=== PATIENT | male | born 1965 | race Caucasian/White ===

== ENCOUNTER 2021-05-15 23:27 | Emergency (ER) | payer OTHER, SELFPAY ==
--- NOTE | ~2021-05-15 | CT_ITS ---
EXAMINATION: CT HEAD WITHOUT CONTRAST CT CERVICAL SPINE WITHOUT CONTRAST CLINICAL INFORMATION: Status post fall COMPARISON: None. TECHNIQUE: Multidetector CT imaging of the head and cervical spine was performed without the use of intravenous contrast. Multiplanar reformats are reviewed. This CT examination was performed using dose optimization techniques as appropriate, variously including the following: *Automated exposure control *Adjustment of mA and/or kV according to patient size (this includes techniques or standardized protocols for targeted exams where dose is matched to indication/reason for exam; i.e. extremities or head) *Use of iterative reconstruction technique DLP: 1143 mGy-cm. FINDINGS: There is no evidence of acute intracranial hemorrhage or territorial infarction. No abnormal mass effect or midline shift is seen. Garcia to white matter differentiation is well preserved. No extra-axial fluid collections are identified. The ventricles are normal in size. There is no abnormal attenuation within the brain parenchyma. The osseous structures and soft tissues are normal. Small mucous retention present within the right sphenoid chamber. Remainder of the paranasal sinuses are clear. Mastoid air cells are pneumatized. Atlantooccipital alignment is maintained. The vertebral bodies and posterior elements align normally. No acute fracture or subluxation. Vertebral body heights are maintained. Small endplate osteophytes present at C4-C5 and C5-C6 and C6-C7 with accompanying of vertebral arthrosis leading to moderate bilateral foraminal narrowing at these levels. The cervicomedullary junction and spinal cord are grossly unremarkable. The paraspinal soft tissues are unremarkable. The imaged lung apices are clear CT/CT cervical spine wo con IMPRESSION: No acute intracranial pathology. No cervical spine fracture or malalignment.
--- NOTE | ~2021-05-15 | XR_ITS ---
EXAMINATION: XR CHEST CLINICAL INFORMATION: Question of aspiration COMPARISON: None TECHNIQUE: Frontal view of the chest was obtained. FINDINGS: No significant abnormality is noted involving the heart, lungs, mediastinum, bony thorax or soft tissues. XR/XR chest 1V IMPRESSION: Unremarkable examination.
--- NOTE | 2021-05-15 23:34 | ECG_ITS ---
Test Reason : OD Blood Pressure : / mmHG Vent. Rate : 089 BPM Atrial Rate : 089 BPM P-R Int : 134 ms QRS Dur : 096 ms QT Int : 386 ms P-R-T Axes : 075 047 019 degrees QTc Int : 469 ms Normal sinus rhythm Possible Left atrial enlargement Borderline ECG No previous ECGs available Referred By: Drew Mar Electronically Signed By:LINDSEY TOWNSEND
--- NOTE | 2021-05-15 23:39 | PC.NURSE ---
family left phone numbers for update Truman Franks (daughter) [phone], and son Sylvester Franks [phone]
[2021-05-15 23:41] VITALS: BP 117/80; BP 157/91; PULSE 87; PULSE 90; RESP 19; TEMP 36.7; O2SAT 70; O2SAT 97; BMI 26.6
[2021-05-15] MEDS: 0.9 % Sodium Chloride 1,000 ML 999 ML IVCONT (23:47)
[2021-05-16] VITALS (7 sets, daily range): BP systolic 131–151; BP diastolic 72–95; PULSE 79–86; RESP 12–22; O2SAT 95–100
[2021-05-16 00:04] LABS: MANUAL DIFF FLAG NO
[2021-05-16 00:05] LABS: Basophils Absolute Auto 0.1 X10*3/uL (0.0-0.2); Basophils Percent Auto 0.3 % (0-2); Eosinophils Absolute Auto 0.1 X10*3/uL (0.0-0.4); Eosinophils Percent Auto 0.5 % (0-4); Hematocrit 47.4 % (42-52); Hemoglobin 16.1 g/dl (14.0-18.0); Imm Gran Pct Auto 1.4 % (0.0-0.4); Lymphocytes Absolute Auto 1.8 X10*3/uL (1.2-4.9); Lymphocytes Percent Auto 8.2 % (20-40); Mean Corpuscular Hemoglobin 32.1 pg (27.0-33.0); Mean Corpuscular Volume 94.6 fL (80-98); Mean Platelet Volume 10.8 fL (9.4-12.4); Monocytes Absolute Auto 1.3 X10*3/uL (0.1-1.2); Monocytes Percent Auto 6.1 % (2-11); Neutrophils Absolute Auto 18.4 X10*3/uL (2.0-8.3); Neutrophils Percent Auto 83.5 % (45-73); Platelet Count 227 X10*3/uL (160-400); Red Blood Count 5.01 X10*6/uL (4.60-5.80); Red Cell Distribution Width 13.7 % (11.0-16.0)
[2021-05-16 00:10] LABS: VBG Base Excess -2.6 mmol/L; VBG HCO3 24 mmol/L (22-26); VBG pCO2 51 mmHg; VBG pH 7.29 (7.32-7.43); VBG pO2 70 mmHg
[2021-05-16 00:11] LABS: Venous Blood Gas Refer to POC result
[2021-05-16 00:22] LABS: COVID-19 Test Negative (Negative); IDNOW Serial# 9DD0AD1C
[2021-05-16 00:30] LABS: Prothrombin Time 12.2 SEC (10.8-13.0)
[2021-05-16 00:46] LABS: Alanine Aminotransferase 33 U/L (0-40); Albumin Level 4.3 g/dL (3.5-5.0); Alkaline Phosphatase 81 U/L (39-117); Anion Gap 18 (12-20); Aspartate Amino Transferase 33 U/L (5-37); Bilirubin Direct 0.3 mg/dL (0.0-0.5); Bilirubin Total 0.7 mg/dL (0.0-1.0); Blood Urea Nitrogen 20 mg/dL (9-16); Calcium 9.6 mg/dL (8.4-10.2); Carbon Dioxide 23 mmol/L (22-29); Chloride 102 mmol/L (96-108); Creatinine Clr Calc Pharmacy 49.8; Estimated Glomerular Filt Rate 54; Glucose Random 188 mg/dL (60-115); Magnesium 2.1 mg/dL (1.6-2.6); Potassium 3.7 mmol/L (3.3-5.1); Sodium 139 mmol/L (135-145); Total Protein 7.3 g/dL (6.5-8.0)
--- NOTE | 2021-05-16 00:46 | ED.OVERDOSE ---
HPI - Overdose General Chief Complaint: Overdose Stated Complaint: od Time Seen by Provider: 05/15/21 23:32 Source: EMS Mode of arrival: EMS History of Present Illness HPI Narrative: Patient with history of remote substance abuse used 2 bags of heroin today family heard thud and found him unresponsive in the shower started CPR by the family patient was found apneic by PD was given 4 mg of intranasal Narcan EMS also gave another 4 mg of Narcan patient was saturating 70% upon EMS arrival no vomiting around upon arrival to ED patient is saturating 80% on 4 L nasal cannula improved to 97% on non-rebreather patient alert oriented x3 denies any pain Related Data Allergies Allergy/AdvReac Type Severity Reaction Status Date / Time No Known Allergies Allergy Verified 05/15/21 23:32 Review of Systems Review of Systems: Constitutional : No Weight loss, No Fever, No Chills ENT/Mouth : No sore throat, No Rhinorrhea Eyes: No Eye Pain, No Swelling Cardiovascular : No Chest Pain, no palpitations Respiratory : No Cough, No Sputum, no shortness of breath Gastrointestinal : no Nausea, No Vomiting, No Diarrhea, No abdominal Pain, no black stools Genitourinary : No Dysuria, No Urinary Frequency Musculoskeletal : No joint pain, No Myalgias, No Joint Swelling Skin : No Skin Lesions, No rash Neuro : No Weakness, No Numbness, No Dizziness, No Headache Psych : No Anxiety/Panic, No Depression Heme/Lymph: No Bruising, No Lymphadenopathy Endocrine : No Polyuria, No Polydipsia All other systems reviewed and are negative [facility] Past Medical History Medical History (Updated 05/16/21 @ 01:42 by Drew Mar MD) Opiate abuse, episodic Physical Exam Vital Signs: Vital Signs: Last Vital Signs Temp 98.0 F 05/15/21 23:41 Pulse 84 05/16/21 00:58 Resp 16 05/16/21 00:58 BP 151/95 H 05/16/21 00:58 Pulse Ox 100 05/16/21 01:43 Oxygen Flow Rate 15 05/15/21 23:41 Body Mass Index 26.6 Appearance: Alert. Oriented X3. No acute distress. Eyes: PERRLA, No Nystagmus ENT: Pharynx normal. Oral Mucosa moist, cervical collar in place Neck: Normal inspection. Neck supple. CVS: Normal heart rate and rhythm. Pulses normal. Respiratory: No respiratory distress. Equal air entry bilateral, no wheezing/rales/rhonchi Abdomen: Soft and nontender. Bowel sounds are present, no mass palpable, no CVA tenderness Skin: Skin warm and dry. Normal skin color. Normal skin turgor. Extremities: No lower extremity edema. No calf tenderness Neuro: Oriented X 3. No motor deficit. No sensory deficit.No cerebellar signs , cranial nerves II-XII intact Course Reevaluation(s) Reevaluation #1: Patient awake saturating 98% vomiting after taking p.o. fluids will watch him for little longer give IV fluids IV Zofran Pepcid Time: 01:52 MDM - Overdose MDM Narrative Medical decision making narrative: Patient is heroin overdose responded to 8 mg of Narcan A and O x3 initially patient hypoxic with elevated WBC count in the blood chest x-ray negative for any acute infiltrate patient vomited 1 time in the ER elevated leukocytes count likely from a hypoxic injury. At this time patient alert oriented times in saturating 98 - 99% at room air taking p.o. fluids will discharge patient home Lab Data Attestation: I reviewed the patient's lab results. Result diagrams: 05/15/21 23:54 05/15/21 23:54 Labs: Lab Results 05/15/21 05/15/21 05/15/21 Range/Units 23:54 23:54 23:54 WBC 22.0 H (4.8-10.8) X10*3/uL RBC 5.01 (4.60-5.80) X10*6/uL Hgb 16.1 (14.0-18.0) g/dl Hct 47.4 (42-52) % MCV 94.6 (80-98) fL MCH 32.1 (27.0-33.0) pg MCHC 34.0 (31.0-36.0) g/dl RDW 13.7 (11.0-16.0) % Plt Count 227 (160-400) X10*3/uL MPV 10.8 (9.4-12.4) fL Immature Gran % (Auto) 1.4 H (0.0-0.4) % Neut % (Auto) 83.5 H (45-73) % Lymph % (Auto) 8.2 L (20-40) % [place] % (Auto) 6.1 (2-11) % Eos % (Auto) 0.5 (0-4) % Baso % (Auto) 0.3 (0-2) % Lymph # (Auto) 1.8 (1.2-4.9) X10*3/uL [place] # (Auto) 1.3 H (0.1-1.2) X10*3/uL Eos # (Auto) 0.1 (0.0-0.4) X10*3/uL Baso # (Auto) 0.1 (0.0-0.2) X10*3/uL Abs Immat Gran (auto) 0.30 H (0.00-0.03) X10*3/uL Absolute Neuts (auto) 18.4 H (2.0-8.3) X10*3/uL Absolute Nucleated RBC 0.000 (0.0-0.012) X10*3/uL Nucleated RBC % (auto) 0.0 (0.0-0.2) /100WBC PT 12.2 (10.8-13.0) SEC INR 1.0 (0.9-1.1) VBG pH (7.32-7.43) VBG pCO2 mmHg VBG pO2 mmHg VBG HCO3 (22-26) mmol/L VBG O2 Saturation % VBG Base Excess mmol/L Sodium Cancelled Potassium Cancelled Chloride Cancelled Carbon Dioxide Cancelled Anion Gap Cancelled BUN Cancelled Creatinine Cancelled Estim Creat Clear Calc Cancelled Estimated GFR Cancelled Random Glucose Cancelled Calcium Cancelled Magnesium (1.6-2.6) mg/dL Total Bilirubin Cancelled Direct Bilirubin Cancelled AST Cancelled ALT Cancelled Alkaline Phosphatase Cancelled Troponin I High Sens (<3.5-35.0) ng/L B-Natriuretic Peptide (<100) pg/mL Total Protein Cancelled Albumin Cancelled COVID-19 (TODD) (Negative) COVID-19 Clin Com 05/15/21 05/15/21 05/15/21 Range/Units 23:54 23:54 23:54 WBC (4.8-10.8) X10*3/uL RBC (4.60-5.80) X10*6/uL Hgb (14.0-18.0) g/dl Hct (42-52) % MCV (80-98) fL MCH (27.0-33.0) pg MCHC (31.0-36.0) g/dl RDW (11.0-16.0) % Plt Count (160-400) X10*3/uL MPV (9.4-12.4) fL Immature Gran % (Auto) (0.0-0.4) % Neut % (Auto) (45-73) % Lymph % (Auto) (20-40) % [place] % (Auto) (2-11) % Eos % (Auto) (0-4) % Baso % (Auto) (0-2) % Lymph # (Auto) (1.2-4.9) X10*3/uL [place] # (Auto) (0.1-1.2) X10*3/uL Eos # (Auto) (0.0-0.4) X10*3/uL Baso # (Auto) (0.0-0.2) X10*3/uL Abs Immat Gran (auto) (0.00-0.03) X10*3/uL Absolute Neuts (auto) (2.0-8.3) X10*3/uL Absolute Nucleated RBC (0.0-0.012) X10*3/uL Nucleated RBC % (auto) (0.0-0.2) /100WBC PT (10.8-13.0) SEC INR (0.9-1.1) VBG pH (7.32-7.43) VBG pCO2 mmHg VBG pO2 mmHg VBG HCO3 (22-26) mmol/L VBG O2 Saturation % VBG Base Excess mmol/L Sodium 139 Potassium 3.7 Chloride 102 Carbon Dioxide 23 Anion Gap 18 BUN 20 H Creatinine 1.37 Estim Creat Clear Calc 49.8 Estimated GFR 54 Random Glucose 188 H Calcium 9.6 Magnesium 2.1 (1.6-2.6) mg/dL Total Bilirubin 0.7 Direct Bilirubin 0.3 AST 33 ALT 33 Alkaline Phosphatase 81 Troponin I High Sens 7.9 (<3.5-35.0) ng/L B-Natriuretic Peptide (<100) pg/mL Total Protein 7.3 Albumin 4.3 COVID-19 (TODD) Negative (Negative) COVID-19 Clin Com See Note 05/15/21 05/16/21 Range/Units 23:54 00:02 WBC (4.8-10.8) X10*3/uL RBC (4.60-5.80) X10*6/uL Hgb (14.0-18.0) g/dl Hct (42-52) % MCV (80-98) fL MCH (27.0-33.0) pg MCHC (31.0-36.0) g/dl RDW (11.0-16.0) % Plt Count (160-400) X10*3/uL MPV (9.4-12.4) fL Immature Gran % (Auto) (0.0-0.4) % Neut % (Auto) (45-73) % Lymph % (Auto) (20-40) % [place] % (Auto) (2-11) % Eos % (Auto) (0-4) % Baso % (Auto) (0-2) % Lymph # (Auto) (1.2-4.9) X10*3/uL [place] # (Auto) (0.1-1.2) X10*3/uL Eos # (Auto) (0.0-0.4) X10*3/uL Baso # (Auto) (0.0-0.2) X10*3/uL Abs Immat Gran (auto) (0.00-0.03) X10*3/uL Absolute Neuts (auto) (2.0-8.3) X10*3/uL Absolute Nucleated RBC (0.0-0.012) X10*3/uL Nucleated RBC % (auto) (0.0-0.2) /100WBC PT (10.8-13.0) SEC INR (0.9-1.1) VBG pH 7.29 L (7.32-7.43) VBG pCO2 51 mmHg VBG pO2 70 mmHg VBG HCO3 24 (22-26) mmol/L VBG O2 Saturation 93.0 % VBG Base Excess -2.6 mmol/L Sodium Potassium Chloride Carbon Dioxide Anion Gap BUN Creatinine Estim Creat Clear Calc Estimated GFR Random Glucose Calcium Magnesium (1.6-2.6) mg/dL Total Bilirubin Direct Bilirubin AST ALT Alkaline Phosphatase Troponin I High Sens (<3.5-35.0) ng/L B-Natriuretic Peptide 21 (<100) pg/mL Total Protein Albumin COVID-19 (TODD) (Negative) COVID-19 Clin Com ECG Data Attestation: I personally reviewed and interpreted this ECG as follows: Interpretation: Normal sinus rhythm heart rate 89 beats per minute normal intervals normal axis no acute ST T wave changes no acute ischemia Discharge Plan Discharge Clinical Impression: Drug overdose Qualifiers: Encounter type: initial encounter Injury intent: accidental or unintentional Qualified Code(s): T50.901A - Poisoning by unspecified drugs, medicaments and biological substances, accidental (unintentional), initial encounter Patient Disposition: Home, Self-Care Instructions: Opioid Use Disorder (ED) Additional Instructions: Stop using drugs. Follow-up with detox as needed
[2021-05-16 00:53] LABS: B Type Natriuretic Peptide 21 pg/mL (<100); Troponin-I High Sensitivity 7.9 ng/L (<3.5-35.0)
[2021-05-16] MEDS: ondansetron HCL 4 MG/2 ML VIAL IVPUSH ×2 (01:31→01:57)
[2021-05-16] MEDS: Famotidine/PF 20 MG/2 ML VIAL IVPUSH (01:57)
[2021-05-16] MEDS: 0.9 % Sodium Chloride 1,000 ML 999 ML IVCONT (01:58)
[2021-05-16 02:43] LABS: Amphetamine Screen Urine Not Detected (Not Detect); Barbiturates, Urine Not Detected (Not Detect); Benzodiazepines Screen Urine Not Detected (Not Detect); Cannabinoid Screen Urine Not Detected (Not Detect); Cocaine Screen Urine Not Detected (Not Detect); Opiate Screen Urine Not Detected (Not Detect); Phencyclidine Screen Urine Not Detected (Not Detect)
[2021-05-16 02:47] LABS: ABG HCO3 25 mmol/L (22-26); ABG pCO2 46 mmHg (32-45); ABG pCO2 TC 46 mmHg (32-45); ABG pH 7.33 (7.35-7.45); ABG pH TC 7.34 (7.35-7.45); ABG pO2 86 mmHg (83-108); ABG pO2 TC 85 (83-108)
[2021-05-16 03:54] LABS: ABG Refer to POC result
== END 2021-05-16 06:07 | disposition home or self-care (01) ==
LOC: HO.ED 05-16 01:59
PROVIDERS: Student in an Organized Health Care Education/Training Program; Emergency Provider Internal Medicine
DX: T40.1X1A Poisoning by heroin, accidental (unintentional), initial encounter (principal); F11.10 Opioid abuse, uncomplicated; Y92.9 Unspecified place or not applicable; Z20.822 Contact with and (suspected) exposure to COVID-19
CPT/HCPCS: 36415; 70450; 71045; 72125; 80048; 80076; 80307; 83735; 83880; 84484; 85025; 85610; 87635; 93005; 96360; 96374; 96376; 99285; J2405